=== PATIENT | male | born 1960 | race Two or more races ===

== ENCOUNTER 2016-09-17 13:43 | Emergency (ER) | payer OTHER ==
[~2016-09-17] VITALS: Ht 170.2 cm; Wt 74.4 kg
[2016-09-17 13:49] VITALS: BP 155/71
[2016-09-17 14:14] LABS: Basophils # (auto) 0 uL; Basophils % (auto) 0.2 % (0.0-2.0); Eosinophils # (auto) 0.1 uL; Eosinophils % (auto) 1.3 % (0.0-7.0); Hematocrit 49.5 % (41.0-53.0); Hemoglobin 16.5 g/dL (13.5-17.5); Lymphocytes # (auto) 1.8 uL; Lymphocytes % (auto) 19.7 % (10.0-50.0); Mean Corpuscular Hemoglobin 29.4 pg (28.0-32.0); Mean Corpuscular Hgb Conc. 33.2 g/dL (32.0-36.0); Mean Corpuscular Volume 88.4 fL (80.0-100.0); Mean Platelet Volume 7.4 fL (7.4-10.4); Monocytes # (auto) 0.4 uL; Monocytes % (auto) 4.3 % (0.0-12.0); Neutrophils # (auto) 6.7 uL; Neutrophils % (auto) 74.5 % (37.0-80.0); Platelet Count (auto) 318 10^3/uL (140-450); Red Cell Distribution Width 12.3 % (11.6-16.0)
[2016-09-17 14:38] LABS: Bilirubin, Total 1.1 mg/dL (0.2-1.0); Calcium 9.4 mg/dL (8.5-10.1)
== END 2016-09-17 23:35 | disposition left against medical advice (07) ==
LOC: ER 13:43
DX: R11.2 Nausea with vomiting, unspecified (principal); R42 Dizziness and giddiness; Z53.21 Procedure and treatment not carried out due to patient leaving prior to being seen by health care provider
CPT/HCPCS: 36415; 80053; 82962; 85025; 93005